=== PATIENT | female | born 1940 | race Caucasian/White ===

== ENCOUNTER 2017-05-22 18:59 | Observation (INO) | payer MEDICARE, OTHER ==
[2017-05-22 19:08] VITALS: BMI 37.0
[2017-05-22] MEDS ORDERED: Aspirin 325 mg EC Tablets PO STA (19:51)
--- NOTE | 2017-05-22 19:53 | C.PDOC ---
Chief Complaint (Nursing): Chest Pain Past Medical History Vital Signs: Last Vital Signs Temp 98 F 05/22/17 19:09 Pulse 74 05/22/17 19:09 Resp 27 H 05/22/17 19:09 BP 144/52 L 05/22/17 19:09 Pulse Ox 99 05/22/17 19:09 - Medical History PMH: Arthritis, Asthma, CAD, Diabetes, Gastritis, HTN, Hypercholesterolemia, Pneumonia (LONG AGO) - [facility] Procedures LEFT HEART CARDIAC CATH (04/11/14) LT HEART ANGIOCARDIOGRAM (04/11/14) - Social History Hx Tobacco Use: No Hx Alcohol Use: No Hx Substance Use: No - Immunization History Hx Tetanus Toxoid Vaccination: Yes Hx Influenza Vaccination: Yes Hx Pneumococcal Vaccination: Yes ED Course And Treatment O2 Sat by Pulse Oximetry: 99 Disposition - Disposition
--- NOTE | 2017-05-22 19:54 | C.PDOC ---
History Of Present Illness 76 y/o female with PMHx of CAD, HTN and DM presents to ED with complaints of "not feeling well" for 2 weeks with worsening sub sternal chest pain 7/10 since last night which prompted visit to ED. Patient states chest pain is associated with sob and denies fever, cough, nausea, vomiting or any other complaints at this time. [place]:Dr. Wren Chief Complaint (Nursing): Chest Pain History Per: Patient History/Exam Limitations: no limitations Onset/Duration Of Symptoms: Days Current Symptoms Are (Timing): Still Present Quality: "Pain" Past Medical History Reviewed: Historical Data, Nursing Documentation, Vital Signs Vital Signs: Last Vital Signs Temp 97.3 F L 05/23/17 00:00 Pulse 66 05/23/17 00:00 Resp 20 05/23/17 00:00 BP 157/72 H 05/23/17 00:00 Pulse Ox 99 05/23/17 00:00 - Medical History PMH: Arthritis, Asthma, CAD, Diabetes, Gastritis, HTN, Hypercholesterolemia, Pneumonia (LONG AGO) Surgical History: No Surg Hx - [facility] Procedures LEFT HEART CARDIAC CATH (04/11/14) LT HEART ANGIOCARDIOGRAM (04/11/14) Family History: States: No Known Family Hx - Social History Hx Tobacco Use: No Hx Alcohol Use: No Hx Substance Use: No - Immunization History Hx Tetanus Toxoid Vaccination: Yes Hx Influenza Vaccination: Yes Hx Pneumococcal Vaccination: Yes Review Of Systems Except As Marked, All Systems Reviewed And Found Negative. Cardiovascular: Positive for: Chest Pain Respiratory: Positive for: Shortness of Breath Physical Exam - Physical Exam Appears: Non-toxic, Other (In mild distress, Morbidly obese) Skin: Warm, Dry, No Rash Head: Atraumatic, Normacephalic Eye(s): bilateral: Normal Inspection Oral Mucosa: Moist Neck: Normal ROM, Supple Cardiovascular: Rhythm Regular, No JVD Respiratory: Normal Breath Sounds, No Rales, No Rhonchi, No Wheezing Gastrointestinal/Abdominal: Soft, No Tenderness, No Guarding, No Rebound Extremity: Normal ROM, Capillary Refill (<2 seconds) Neurological/Psych: Oriented x3, Normal Speech, Normal Cognition ED Course And Treatment - Laboratory Results Result Diagrams: 05/22/17 20:14 05/22/17 20:14 O2 Sat by Pulse Oximetry: 99 (RA) Pulse Ox Interpretation: Normal Medical Decision Making Medical Decision Making: Impression: Chest pain with multiple risk factors Plan: Patient will be admitted to observation, unchanged if labs are normal. Disposition - Disposition Disposition: HOSPITALIZED Disposition Time: 04:26 Condition: GOOD - Clinical Impression Clinical Impression: Chest pain - Scribe Statement The provider has reviewed the documentation as recorded by the Travisibalina Ramos All medical record entries made by the Silke were at my direction and personally dictated by me. I have reviewed the chart and agree that the record accurately reflects my personal performance of the history, physical exam, medical decision making, and the department course for this patient. I have also personally directed, reviewed, and agree with the discharge instructions and disposition.
[2017-05-22] MEDS ORDERED: Aspirin 325 mg EC Tablets PO ONE (20:03)
[2017-05-22] MEDS ORDERED: Nitroglycerin 2% Ointment Foilpak UD TOP ONE (20:03)
[2017-05-22 20:24] LABS: BASO # 0.1 K/uL (0.0-0.2); BASO % 1.3 % (0.0-2.0); EOS # 0.2 K/uL (0.0-0.7); EOS % 2.2 % (0.0-4.0); LYMPH # 3.1 K/uL (1.0-4.3); LYMPH % 31.2 % (20.0-40.0); MEAN CORPUSCULAR HEMOGLOBIN 27.9 pg (27.0-31.0); MEAN CORPUSCULAR HGB CONC 32.7 g/dL (33.0-37.0); MEAN PLATELET VOLUME 10.4 fL (7.2-11.7); MONO # 0.7 K/uL (0.0-0.8); MONO % 6.5 % (0.0-10.0); NEUT # 5.9 K/uL (1.8-7.0); NEUT % 58.8 % (50.0-75.0); RBC 4.06 Mil/uL (3.80-5.20); RED CELL DISTRIBUTION WIDTH 14.2 % (11.5-14.5); WHITE BLOOD COUNT 10.1 K/uL (4.8-10.8)
[2017-05-22 20:27] LABS: HEMOGLOBIN 11.3 g/dL (11.0-16.0); MEAN CELL VOLUME 85.5 fL (81.0-99.0)
[2017-05-22 20:31] LABS: CALCIUM 8.7 mg/dl (8.6-10.4); GFR AFRICAN-AMERICAN > 60; GFR NON-AFRICAN AMERICAN > 60
[2017-05-22 20:32] LABS: ALB/GLOB RATIO 0.8 (1.0-2.1); ALBUMIN 3.5 g/dL (3.5-5.0); ALT/SGPT 24 U/L (9-52); AST/SGOT 57 U/L (14-36); BLOOD UREA NITROGEN 12 mg/dL (7-17)
[2017-05-22 21:47] LABS: B-TYPE NATRIURETIC PEPTIDE 385 pg/mL (0-900)
--- NOTE | 2017-05-22 23:38 | CP.PCM.HP ---
History of Present Illness - History of Present Illness History of Present Illness: CC: Chest pain 76 year old female with past medical history of HTN, DM, hperlipidemia , and CAD s/p multiple stents presents to the ED with chest pain. Patient's chest pain started 2 weeks ago. Patient states the pain is located at mid sternum region and it does not radiate to any other region of her body. She describes the pain as pressure like and it worse with movement and deep breathing. The chest pain became worse this morning and patient started to develop shortness of breath when the pain is at the worst. She took a dose of nitroglycerin at home with alleviated her symptoms. Patient has an appointment to see her Chronic Care Nurse this Sunday. Patient denies any recent medication changes or history of recent travels. Patient further denies fever, chills, headache, dizziness, vision changes, palpitations, nausea, vomiting or diarrhea. PMD: Dr. Saunders, Cardio: Dr. Wren PMHx: HTN, DM, CAD, HLD PSH: cardiac cath with stents, hysterectomy Allergy: none Family Hx: denies cardiovascular diseases in the family Home meds: lisinopril, simvastatin, isosorbide, novolin 70/30, glimepiride, coreg, ASA, gabapentin, dexilant Present on Admission - Present on Admission Any Indicators Present on Admission: No Review of Systems - Constitutional Constitutional: As Per HPI. absent: Anorexia, Chills, Fever - EENT Eyes: As Per HPI. absent: Blind Spots, Blurred Vision Ears: As Per HPI. absent: Decreased Hearing, Dizziness Nose/Mouth/Throat: As Per HPI. absent: Nasal Congestion, Nasal Discharge, Nasal Trauma - Breasts Breasts: As Per HPI - Cardiovascular Cardiovascular: As Per HPI, Chest Pain, Chest Pain with Activity - Respiratory Respiratory: As Per HPI, Dyspnea. absent: Wheezing - Gastrointestinal Gastrointestinal: As Per HPI. absent: Abdominal Pain, Diarrhea, Nausea, Vomiting - Genitourinary Genitourinary: As Per HPI. absent: Change in Urinary Stream, Dysuria - Reproductive: Female Reproductive:Female: As Per HPI - Menstruation Menstruation: As Per HPI - Musculoskeletal Musculoskeletal: As Per HPI. absent: Back Pain - Integumentary Integumentary: As Per HPI - Neurological Neurological: As Per HPI. absent: Dizziness, Numbness, Tremor - Psychiatric Psychiatric: As Per HPI. absent: Anxiety - Endocrine Endocrine: As Per HPI. absent: Change in Body Appearance - Hematologic/Lymphatic Hematologic: As Per HPI Past Patient History - Tetanus Immunizations Tetanus Immunization: Unknown - Past Medical History & Family History Past Medical History?: Yes - Past Social History Smoking Status: Former Smoker - CARDIAC Hx Hypercholesterolemia: Yes Hx Hypertension: Yes - PULMONARY Hx Asthma: Yes Hx Pneumonia: Yes (LONG AGO) - NEUROLOGICAL Other/Comment: TINGLING RT LEG - HEENT Hx HEENT Problems: No - ENDOCRINE/METABOLIC Hx Endocrine Disorders: Yes Hx Diabetes Mellitus Type 1: Yes Hx Diabetes Mellitus Type 2: Yes - MUSCULOSKELETAL/RHEUMATOLOGICAL Hx Arthritis: Yes - GASTROINTESTINAL Hx Gastritis: Yes - PSYCHIATRIC Hx Substance Use: No - SURGICAL HISTORY Hx Surgeries: Yes Hx Cardiac Catheterization: Yes (1998 and 1 time after that) Hx Hysterectomy: Yes (with b/L oopherectomy in 2011) Other/Comment: HAD VASCULAR SURGERY AFTER 1998 CATH. FOR BLEEDING - ANESTHESIA Hx Anesthesia: Yes Hx Anesthesia Reactions: No Hx Malignant Hyperthermia: No Meds Allergies/Adverse Reactions: Allergies Allergy/AdvReac Type Severity Reaction Status Date / Time No Known Allergies Allergy Verified 07/05/15 17:54 Physical Exam - Additional Findings Additional findings: - Constitutional Appears: Non-toxic, No Acute Distress - Head Exam Head Exam: ATRAUMATIC, NORMAL INSPECTION, NORMOCEPHALIC - Eye Exam Eye Exam: Normal appearance, PERRL Pupil Exam: NORMAL ACCOMODATION - ENT Exam ENT Exam: Normal Exam - Neck Exam Neck exam: Positive for: Normal Inspection - Respiratory Exam Respiratory Exam: Chest Wall Tenderness, Clear to PA & Lateral. absent: Rales, Rhonchi, Wheezes - Cardiovascular Exam Cardiovascular Exam: REGULAR RHYTHM, RRR, +S1, +S2. absent: Gallop, Rubs, Systolic Murmur - GI/Abdominal Exam GI & Abdominal Exam: Normal Bowel Sounds, Soft. absent: Guarding, Rebound, Tenderness - Extremities Exam Extremities exam: Positive for: calf tenderness, normal inspection. Negative for: pedal edema Additional comments: non pitting edema in both lower extremities. - Back Exam Back exam: NORMAL INSPECTION. absent: CVA tenderness (L), CVA tenderness (R) - Neurological Exam Neurological exam: Alert, Oriented x3 - Psychiatric Exam Psychiatric exam: Normal Affect, Normal Mood - Skin Skin Exam: Dry, Normal Color, Warm Results - Vital Signs Recent Vital Signs: Last Vital Signs Temp 97.9 F 05/22/17 23:13 Pulse 68 05/22/17 23:13 Resp 20 05/22/17 23:13 BP 165/71 H 05/22/17 23:13 Pulse Ox 99 05/22/17 23:13 - Labs Result Diagrams: 05/22/17 20:14 05/22/17 20:14 Labs: Laboratory Results - last 24 hr 05/22/17 05/22/17 05/22/17 20:14 20:14 23:21 WBC 10.1 RBC 4.06 Hgb 11.3 D Hct 34.7 MCV 85.5 D MCH 27.9 MCHC 32.7 L RDW 14.2 Plt Count 171 MPV 10.4 Neut % (Auto) 58.8 Lymph % (Auto) 31.2 [place] % (Auto) 6.5 Eos % (Auto) 2.2 Baso % (Auto) 1.3 Neut # (Auto) 5.9 Lymph # (Auto) 3.1 [place] # (Auto) 0.7 Eos # (Auto) 0.2 Baso # (Auto) 0.1 Sodium 138 Potassium 5.6 H Chloride 102 Carbon Dioxide 24 Anion Gap 17 BUN 12 Creatinine 0.8 Est GFR ( Amer) > 60 Est GFR (Non-Af Amer) > 60 POC Glucose (mg/dL) 176 H Random Glucose 169 H Calcium 8.7 Total Bilirubin 0.9 AST 57 H ALT 24 Alkaline Phosphatase 74 Troponin I < 0.0120 NT-Pro-B Natriuret Pep 385 Total Protein 7.8 Albumin 3.5 Globulin 4.3 H Albumin/Globulin Ratio 0.8 L Assessment & Plan - Assessment and Plan (Free Text) Assessment: Chest pain r/o ACS -Telemetry -EKG NSR @65bpm, left axis deviation, no acute ST changes compared to previous -Troponin negative, repeats pending -Cardiology consulted, Dr. Wren help appreciated -Crestor 5mg -ASA 81mg -Imdur 60mg CAD -ASA, crestor, coreg HTN -Corg 25mg BID -Lisinopril 20mg DM -NPH 35u ACD -ISS -FS ACHS -Hypoglycemia protocol Prophylactic measures -Protonix -Lovenox Discussed with attending Dr. Saunders
[2017-05-23 08:01] LABS: CK-MB 0.59 ng/mL (0.0-3.38)
[2017-05-23] MEDS: (Novolin R) Insulin Human Regular 100 units/ml vial SC SCH ×3 (08:17→17:14)
--- NOTE | 2017-05-23 08:17 | RAD ---
PROCEDURE: CHEST RADIOGRAPH, 1 VIEW HISTORY: chest pain COMPARISON: Chest radiograph dated 07/05/2015. FINDINGS: LUNGS: Clear. PLEURA: No pneumothorax or pleural fluid seen. CARDIOVASCULAR: Atherosclerotic aortic calcifications. Cardiomediastinal silhouette stably enlarged. OSSEOUS STRUCTURES: Unchanged. VISUALIZED UPPER ABDOMEN: Normal. OTHER FINDINGS: None. IMPRESSION: No active disease.
[2017-05-23] MEDS ORDERED: Sod Polystyrene Sulf 15 gm/60 ml Susp PO ONE (09:39)
[2017-05-23] MEDS ORDERED: Enoxaparin 40 mg Syringe SC SCH (10:00)
[2017-05-23] MEDS ORDERED: Pantoprazole 40 mg EC Tab PO SCH ×2 (10:00)
--- NOTE | 2017-05-23 13:06 | CARD ---
APPROVED REPORT EXAM: Two-dimensional and M-mode echocardiogram with Doppler and color Doppler. Other Information Quality : GoodRhythm : INDICATION Cardiac Disease: CAD Chest Pain RISK FACTORS Hypertension Diabetes 2D DIMENSIONS IVSd0.9 (0.7-1.1cm)LVDd4.6 (3.9-5.9cm) PWd0.9 (0.7-1.1cm)LVDs3.5 (2.5-4.0cm) FS (%) 23.9 %LVEF (%)58.0 (>50%) M-Mode DIMENSIONS RVDd1.77 (2.1-3.2cm)Left Atrium (MM)4.17 (2.5-4.0cm) IVSd0.97 (0.7-1.1cm)Aortic Root2.48 (2.2-3.7cm) LVDd5.03 (4.0-5.6cm)Aortic Cusp Exc.1.64 (1.5-2.0cm) PWd0.83 (0.7-1.1cm)FS (%) 32 % LVDs3.40 (2.0-3.8cm)LVEF (%)60 (>50%) Mitral Valve MV E Exsxvlpc77.4cm/sMV A Ismoejnc983.2cm/sE/A ratio0.8 TDI E/Lateral E'0.0E/Medial E'0.0 Tricuspid Valve TR Peak Tqxzkfkl381sr/sTR Peak Gr.[id number] LEFT VENTRICLE The left ventricle is normal size. There is normal left ventricular wall thickness. The left ventricular function is normal. The left ventricular ejection fraction is within the normal range. There is normal LV segmental wall motion. Tissue Doppler imaging reveals mild left ventricular diastolic dysfunction. Transmitral Doppler flow pattern is Grade I-abnormal relaxation pattern. No left ventricle thrombus noted on this study. RIGHT VENTRICLE The right ventricle is normal size. There is normal right ventricular wall thickness. The right ventricular systolic function is normal. ATRIA The left atrium is mildly dilated. The right atrium size is normal. The interatrial septum is intact with no evidence for an atrial septal defect. AORTIC VALVE The aortic valve is normal in structure. No aortic regurgitation is present. There is no aortic valvular stenosis. There is no aortic valvular vegetation. MITRAL VALVE Mitral annular calcification is mild to moderate. There is no mitral valve stenosis. There is no mitral valve regurgitation noted. TRICUSPID VALVE The tricuspid valve is normal in structure. There is no tricuspid valve regurgitation noted. PULMONIC VALVE The pulmonary valve is normal in structure. There is no pulmonic valvular regurgitation. GREAT VESSELS The aortic root is normal in size. The ascending aorta is normal in size. The pulmonary artery is normal. The IVC is normal in size and collapses >50% with inspiration. PERICARDIAL EFFUSION There is a trace loculated posterior pericardial effusion. <Conclusion> Tissue Doppler imaging reveals mild left ventricular diastolic dysfunction. Transmitral Doppler flow pattern is Grade I-abnormal relaxation pattern. The left atrium is mildly dilated. Mitral annular calcification is mild to moderate. LVEF IS 60%.
[2017-05-23] MEDS ORDERED: Bisacodyl 5mg EC Tab PO ONE (15:35)
[2017-05-23 16:06] VITALS: PULSE 68
[2017-05-23 16:16] VITALS: BP 138/71; RESP 20; TEMP 97.3; O2SAT 96
[2017-05-23] MEDS ORDERED: (Novolin 70/30) NPH/Regular 70/30 Units/ml 10 ml vial SC SCH (16:30)
--- NOTE | 2017-05-23 19:50 | CP.PCM.CON ---
History of Present Illness - History of Present Illness History of Present Illness: I was asked to see patient by Dr Saunders. Patient is a 77 year old female with a PMH HTN, hypercholesterolemia, CAD s/p stent of the left circumflex artery DM, hypercholesterolemia who presents with chest pressure. The patient states she was at home when she developed progresve worsening chest pressure which was central in location. There was associated dyspnea. The patient presented to [facility] because symptoms did not improve. She has been asymptomatic at the hospital, and cardiac enzymes have been negative. Review of Systems - Constitutional Constitutional: absent: As Per HPI, Anorexia, Chills, Daytime Sleepiness, Excessive Sweating, Fatigue, Fever, Frequent Falls, Headache, Increased Appetite , Lethargy, Malaise, Night Sweats, Snoring, Sleep Apnea, Weight Gain, Weight Loss, Weakness, Other - EENT Eyes: absent: As Per HPI, Blind Spots, Blurred Vision, Change in Vision, Decreased Night Vision, Diplopia, Discharge, Dry Eye, Exophthalmos, Floaters, Irritation, Itchy Eyes, Loss of Peripheral Vision, Pain, Photophobia, Requires Corrective Lenses, Sees Flashes, Spots in Vision, Tunnel Vision, Other Visual Disturbances, Loss of Vision, Other Ears: absent: As Per HPI, Decreased Hearing, Ear Discharge, Ear Pain, Tinnitus, Abnormal Hearing, Disequilibrium, Dizziness, Other Nose/Mouth/Throat: absent: As Per HPI, Epistaxis, Nasal Congestion, Nasal Discharge, Nasal Obstruction, Nasal Trauma, Nose Pain, Post Nasal Drip, Sinus Pain, Sinus Pressure, Bleeding Gums, Change in Voice, Dental Pain, Dry Mouth, Dysphagia, Halitosis, Hoarsness, Lip Swelling, Mouth Lesions, Mouth Pain, Odynophagia, Sore Throat, Throat Swelling, Tongue Swelling, Facial Pain, Neck Pain, Neck Mass, Other - Cardiovascular Cardiovascular: Chest Pain, Dyspnea - Respiratory Respiratory: Dyspnea - Gastrointestinal Gastrointestinal: absent: As Per HPI, Abdominal Pain, Belching, Bloating, Change in Bowel Habits, Change in Stool Character, Coffee Ground Emesis, Constipation, Cramping, Diarrhea, Dyspepsia, Dysphagia, Early Satiety, Excessive Flatus, Fecal Incontinence, Heartburn, Hematemesis, Hematochezia, Loose Stools, Melena, Nausea, Odynophagia, Temesmus, Vomiting, Other - Musculoskeletal Musculoskeletal: absent: As Per HPI, Abnormal Gait, Arthralgias, Atrophy, Back Pain, Deformity, Joint Swelling, Limited Range of Motion, Loss of Height, Muscle Cramps, Muscle Weakness, Myalgias, Neck Pain, Numbness, Radiating Pain into Limb, Stiffness, Tingling, Other - Integumentary Integumentary: absent: As Per HPI, Acne, Alopecia, Bleeding Lesions, Change in Hair, Change in Nails, Change in Pigmentation, Changing Lesions, Dry Skin, Erythema, Furuncle, Hirsutism, Lesions, New Lesions, Non-Healing Lesions, Photosensitivity, Pruritus, Rash, Skin Pain, Skin Ulcer, Sores, Striae, Swelling , Unusual Bruising, Wounds, Jaundice, Other - Neurological Neurological: absent: As Per HPI, Abnormal Gait, Abnormal Hearing, Abnormal Movements, Abnormal Speech, Behavioral Changes, Burning Sensations, Confusion, Convulsions, Disequilibrium, Dizziness, Numbness, Focal Weakness, Frequent Falls , Headaches, Lack of Coordination, Loss of Vision, Memory Loss, Paresthesias, Radicular Pain, Restless Legs, Sensory Deficit, Syncope, Tingling, Tremor, Vertigo, Weakness, Other Visual Disturbances, Other - Psychiatric Psychiatric: absent: As Per HPI, Abnormal Sleep Pattern, Anhedonia, Anxiety, Auditory Hallucinations, Behavioral Changes, Change in Appetite, Change in Libido, Confusion, Depression, Difficulty Concentrating, Hallucinations, Homicidal Ideation, Hopelessness, Irritability, Memory Loss, Mood Swings, Panic Attacks, Paranoia, Suicidal Ideation, Visual Hallucinations, Tactile Hallucinations, Other - Endocrine Endocrine: absent: As Per HPI, Change in Body Appearance, Change in Libido, Cold Intolorance, Deepening of Voice, Excessive Sweating, Fatigue, Flushing, Heat Intolorance, Increase in Ring/Shoe/Hat Size, Palpitations, Polydipsia, Polyphagia, Polyuria, Other - Hematologic/Lymphatic Hematologic: absent: As Per HPI, Easy Bleeding, Easy Bruising, Lymphadenopathy, Other Past Patient History - Tetanus Immunizations Tetanus Immunization: Unknown - Past Medical History & Family History Past Medical History?: Yes - Past Social History Smoking Status: Former Smoker - CARDIAC Hx Hypercholesterolemia: Yes Hx Hypertension: Yes - PULMONARY Hx Asthma: Yes Hx Pneumonia: Yes (LONG AGO) - NEUROLOGICAL Other/Comment: TINGLING RT LEG - HEENT Hx HEENT Problems: No - ENDOCRINE/METABOLIC Hx Endocrine Disorders: Yes Hx Diabetes Mellitus Type 1: Yes Hx Diabetes Mellitus Type 2: Yes - MUSCULOSKELETAL/RHEUMATOLOGICAL Hx Arthritis: Yes - GASTROINTESTINAL Hx Gastritis: Yes - PSYCHIATRIC Hx Substance Use: No - SURGICAL HISTORY Hx Surgeries: Yes Hx Cardiac Catheterization: Yes (1998 and 1 time after that) Hx Hysterectomy: Yes (with b/L oopherectomy in 2011) Other/Comment: HAD VASCULAR SURGERY AFTER 1998 CATH. FOR BLEEDING - ANESTHESIA Hx Anesthesia: Yes Hx Anesthesia Reactions: No Hx Malignant Hyperthermia: No Meds Allergies/Adverse Reactions: Allergies Allergy/AdvReac Type Severity Reaction Status Date / Time No Known Allergies Allergy Verified 07/05/15 17:54 Physical Exam - Constitutional Appears: Non-toxic - Head Exam Head Exam: NORMAL INSPECTION - Eye Exam Eye Exam: Normal appearance - ENT Exam ENT Exam: Mucous Membranes Moist - Neck Exam Neck exam: Positive for: Full Rom - Respiratory Exam Respiratory Exam: NORMAL BREATHING PATTERN - Cardiovascular Exam Cardiovascular Exam: REGULAR RHYTHM - GI/Abdominal Exam GI & Abdominal Exam: Normal Bowel Sounds - Rectal Exam Rectal Exam: Deferred - Extremities Exam Extremities exam: Positive for: normal inspection - Back Exam Back exam: NORMAL INSPECTION - Neurological Exam Neurological exam: Alert, Oriented x3 - Psychiatric Exam Psychiatric exam: Normal Affect - Skin Skin Exam: Normal Color Results - Vital Signs Recent Vital Signs: Last Vital Signs Temp 97.3 F L 05/23/17 16:15 Pulse 68 05/23/17 16:15 Resp 20 05/23/17 16:15 BP 138/71 05/23/17 16:15 Pulse Ox 96 05/23/17 16:15 - Labs Result Diagrams: 05/22/17 20:14 05/22/17 20:14 Labs: Laboratory Results - last 24 hr 05/22/17 05/22/17 05/22/17 20:14 20:14 23:21 WBC 10.1 RBC 4.06 Hgb 11.3 D Hct 34.7 MCV 85.5 D MCH 27.9 MCHC 32.7 L RDW 14.2 Plt Count 171 MPV 10.4 Neut % (Auto) 58.8 Lymph % (Auto) 31.2 [place] % (Auto) 6.5 Eos % (Auto) 2.2 Baso % (Auto) 1.3 Neut # (Auto) 5.9 Lymph # (Auto) 3.1 [place] # (Auto) 0.7 Eos # (Auto) 0.2 Baso # (Auto) 0.1 Sodium 138 Potassium 5.6 H Chloride 102 Carbon Dioxide 24 Anion Gap 17 BUN 12 Creatinine 0.8 Est GFR ( Amer) > 60 Est GFR (Non-Af Amer) > 60 POC Glucose (mg/dL) 176 H Random Glucose 169 H Calcium 8.7 Total Bilirubin 0.9 AST 57 H ALT 24 Alkaline Phosphatase 74 Total Creatine Kinase CK-MB (Mass) Troponin I < 0.0120 NT-Pro-B Natriuret Pep 385 Total Protein 7.8 Albumin 3.5 Globulin 4.3 H Albumin/Globulin Ratio 0.8 L 05/23/17 05/23/17 05/23/17 00:58 06:31 07:30 WBC RBC Hgb Hct MCV MCH MCHC RDW Plt Count MPV Neut % (Auto) Lymph % (Auto) [place] % (Auto) Eos % (Auto) Baso % (Auto) Neut # (Auto) Lymph # (Auto) [place] # (Auto) Eos # (Auto) Baso # (Auto) Sodium Potassium Chloride Carbon Dioxide Anion Gap BUN Creatinine Est GFR ( Amer) Est GFR (Non-Af Amer) POC Glucose (mg/dL) 181 H Random Glucose Calcium Total Bilirubin AST ALT Alkaline Phosphatase Total Creatine Kinase 47 62 CK-MB (Mass) 0.50 0.59 Troponin I < 0.0120 < 0.0120 NT-Pro-B Natriuret Pep Total Protein Albumin Globulin Albumin/Globulin Ratio 05/23/17 05/23/17 11:22 16:38 WBC RBC Hgb Hct MCV MCH MCHC RDW Plt Count MPV Neut % (Auto) Lymph % (Auto) [place] % (Auto) Eos % (Auto) Baso % (Auto) Neut # (Auto) Lymph # (Auto) [place] # (Auto) Eos # (Auto) Baso # (Auto) Sodium Potassium Chloride Carbon Dioxide Anion Gap BUN Creatinine Est GFR ( Amer) Est GFR (Non-Af Amer) POC Glucose (mg/dL) 232 H 211 H Random Glucose Calcium Total Bilirubin AST ALT Alkaline Phosphatase Total Creatine Kinase CK-MB (Mass) Troponin I NT-Pro-B Natriuret Pep Total Protein Albumin Globulin Albumin/Globulin Ratio - EKG Data EKG Interpreted by: Myself EKG shows normal: Sinus rhythm Assessment & Plan (1) CAD (coronary artery disease) Assessment and Plan: patient has known CAD, and has risk factors for progressive CAD. She has ruled out for myocardial infarction. She is stable to be discharged to home. I will schedule outpatient stress test. Status: Chronic (2) HTN (hypertension) Assessment and Plan: blood pressure control Status: Acute (3) Diabetes Assessment and Plan: risk factor for CAD. Status: Chronic
--- NOTE | 2017-05-24 12:35 | CARD ---
APPROVED REPORT EKG Measurement Heart [id number] [place] [id number] <Conclusion> Normal sinus rhythm Possible Left atrial enlargement Nonspecific ST abnormality Abnormal ECG
--- NOTE | 2017-05-24 15:00 | CARD ---
APPROVED REPORT EKG Measurement Heart [id number] [place] 144P57 [id number] <Conclusion> Normal sinus rhythm Possible Left atrial enlargement Borderline ECG
--- NOTE | 2017-05-24 15:00 | CARD ---
APPROVED REPORT EKG Measurement Heart [id number] [place] 144P50 [id number] <Conclusion> Normal sinus rhythm Nonspecific ST and T wave abnormality Abnormal ECG
--- NOTE | 2017-05-24 18:04 | CP.PCM.DIS ---
Provider - Provider Date of Admission: 05/22/17 21:10 Attending physician: Florencio Saunders Jr, MD Primary care physician: Nicky Consults: Miriam: Holger Time Spent in preparation of Discharge (in minutes): 45 Hospital Course - Lab Results Lab Results: Most Recent Lab Values WBC 10.1 K/uL (4.8-10.8) 05/22/17 20:14 RBC 4.06 Mil/uL (3.80-5.20) 05/22/17 20:14 Hgb 11.3 g/dL (11.0-16.0) D 05/22/17 20:14 Hct 34.7 % (34.0-47.0) 05/22/17 20:14 MCV 85.5 fL (81.0-99.0) D 05/22/17 20:14 MCH 27.9 pg (27.0-31.0) 05/22/17 20:14 MCHC 32.7 g/dL (33.0-37.0) L 05/22/17 20:14 RDW 14.2 % (11.5-14.5) 05/22/17 20:14 Plt Count 171 K/uL (130-400) 05/22/17 20:14 MPV 10.4 fL (7.2-11.7) 05/22/17 20:14 Neut % (Auto) 58.8 % (50.0-75.0) 05/22/17 20:14 Lymph % (Auto) 31.2 % (20.0-40.0) 05/22/17 20:14 Coffee % (Auto) 6.5 % (0.0-10.0) 05/22/17 20:14 Eos % (Auto) 2.2 % (0.0-4.0) 05/22/17 20:14 Baso % (Auto) 1.3 % (0.0-2.0) 05/22/17 20:14 Neut # (Auto) 5.9 K/uL (1.8-7.0) 05/22/17 20:14 Lymph # (Auto) 3.1 K/uL (1.0-4.3) 05/22/17 20:14 Coffee # (Auto) 0.7 K/uL (0.0-0.8) 05/22/17 20:14 Eos # (Auto) 0.2 K/uL (0.0-0.7) 05/22/17 20:14 Baso # (Auto) 0.1 K/uL (0.0-0.2) 05/22/17 20:14 Sodium 138 mmol/L (132-148) 05/22/17 20:14 Potassium 5.6 mmol/L (3.6-5.2) H 05/22/17 20:14 Chloride 102 mmol/L (98-107) 05/22/17 20:14 Carbon Dioxide 24 mmol/L (22-30) 05/22/17 20:14 Anion Gap 17 (10-20) 05/22/17 20:14 BUN 12 mg/dL (7-17) 05/22/17 20:14 Creatinine 0.8 mg/dL (0.7-1.2) 05/22/17 20:14 Est GFR ( Amer) > 60 05/22/17 20:14 Est GFR (Non-Af Amer) > 60 05/22/17 20:14 POC Glucose (mg/dL) 211 mg/dL (65-110) H 05/23/17 16:38 Random Glucose 169 mg/dL (65-105) H 05/22/17 20:14 Calcium 8.7 mg/dl (8.6-10.4) 05/22/17 20:14 Total Bilirubin 0.9 mg/dL (0.2-1.3) 05/22/17 20:14 AST 57 U/L (14-36) H 05/22/17 20:14 ALT 24 U/L (9-52) 05/22/17 20:14 Alkaline Phosphatase 74 U/L (38-126) 05/22/17 20:14 Total Creatine Kinase 62 U/L (30-135) 05/23/17 07:30 CK-MB (Mass) 0.59 ng/mL (0.0-3.38) 05/23/17 07:30 Troponin I < 0.0120 ng/mL (0.00-0.120) 05/23/17 07:30 NT-Pro-B Natriuret Pep 385 pg/mL (0-900) 05/22/17 20:14 Total Protein 7.8 g/dL (6.3-8.3) 05/22/17 20:14 Albumin 3.5 g/dL (3.5-5.0) 05/22/17 20:14 Globulin 4.3 gm/dL (2.2-3.9) H 05/22/17 20:14 Albumin/Globulin Ratio 0.8 (1.0-2.1) L 05/22/17 20:14 - Hospital Course Hospital Course: 76 year old female with past medical history of HTN, DM, hperlipidemia , and CAD s/p multiple stents presents to the ED with chest pain. Patient's chest pain started 2 weeks ago. Patient states the pain is located at mid sternum region and it does not radiate to any other region of her body. She describes the pain as pressure like and it worse with movement and deep breathing. The chest pain became worse this morning and patient started to develop shortness of breath when the pain is at the worst. She took a dose of nitroglycerin at home with alleviated her symptoms. Patient has an appointment to see her Security Representative this Sunday. Patient denies any recent medication changes or history of recent travels. Patient further denies fever, chills, headache, dizziness, vision changes, palpitations, nausea, vomiting or diarrhea. Hospital course: patient ahd 3 negative troponins and 3 EKGs with no arrythmogenic intervals. Patient was seen by Dr. Wren and norah for D/C. He will follow up with Dr. Wren for stress test. Discharge Exam - Head Exam Head Exam: NORMAL INSPECTION - Eye Exam Eye Exam: EOMI, Normal appearance, PERRL Pupil Exam: NORMAL ACCOMODATION, PERRL - Respiratory Exam Respiratory Exam: Clear to PA & Lateral, UNREMARKABLE - Cardiovascular Exam Cardiovascular Exam: REGULAR RHYTHM - GI/Abdominal Exam GI & Abdominal Exam: Normal Bowel Sounds - Neurological Exam Neurological exam: Alert, CN II-XII Intact, Normal Gait, Oriented x3, Reflexes Normal - Psychiatric Exam Psychiatric exam: Normal Affect, Normal Mood - Skin Skin Exam: Dry, Intact, Normal Color, Warm Discharge Plan - Follow Up Plan Condition: STABLE Disposition: HOME/ ROUTINE Instructions: Heart Healthy Diet, Carbohydrate Counting Diet, Diabetes Diet , Chest Pain (DC) Additional Instructions: Please keep your appointment with Dr. Wren in the office. Please follow up with Dr. Saunders in the office. Please call to make an appointment Please continue taking your home medications Please come back to the ED if symptoms return Referrals: Florencio Saunders Jr., MD [Medical Doctor] - Gerhard Wren MD [Staff Provider] -
== END 2017-05-23 19:07 | disposition home or self-care (01) ==
LOC: C.ER 18:59 → C.9E 21:10 → C.6T 21:10
PROVIDERS: ADMIT Internal Medicine; ATTEND Internal Medicine
DX: R07.89 Other chest pain (principal); I10 Essential (primary) hypertension; E78.00 Pure hypercholesterolemia, unspecified; J45.909 Unspecified asthma, uncomplicated; I25.10 Atherosclerotic heart disease of native coronary artery without angina pectoris; M19.90 Unspecified osteoarthritis, unspecified site; K29.70 Gastritis, unspecified, without bleeding; E11.9 Type 2 diabetes mellitus without complications; Z79.4 Long term (current) use of insulin; Z95.5 Presence of coronary angioplasty implant and graft; Z79.82 Long term (current) use of aspirin; Z87.01 Personal history of pneumonia (recurrent); Z87.891 Personal history of nicotine dependence
CPT/HCPCS: 36415; 71045; 80053; 82948; 83880; 84484; 85025; 93306; 99285; G0378; J1650